=== PATIENT | female | born 1955 | race American Indian/Alaskan Native ===

== ENCOUNTER 2016-09-30 08:25 | Emergency (ER) | payer BC ==
[2016-09-30 08:25] VITALS: BMI 30.2
[2016-09-30 08:43] VITALS: TEMP 98.1; O2SAT 97
--- NOTE | 2016-09-30 09:00 | ED PDOC ---
Arrival/HPI - General Chief Complaint: Shortness Of Breath Time Seen by Provider: 09/30/16 08:36 Historian: Patient - History of Present Illness Narrative History of Present Illness (Text): 09/30/16 08:56 60 year old female who denies significant past medical history presents to the emergency department with productive cough associated with chest pain for the past week. She states she is bringing up white sputum. No other complaints at this time. PMD: Dr. Carrasco Time/Duration: 1 week Symptom Onset: Gradual Symptom Course: Unchanged Modifying Factors (Text): None Associated Symptoms (Text): None Past Medical History - Provider Review Nursing Documentation Reviewed: Yes - Infectious Disease Hx of Infectious Diseases: None - Tetanus Immunization Tetanus Immunization: Unknown - Reproductive Menopause: Yes - Past Medical History Past Medical History: No Previous - Cardiac Hx Hypertension: Yes (patient not sure) - Pulmonary Hx Pneumonia: Yes - Neurological Hx Neurological Disorder: No Hx Dizziness: Yes (chief complaint this admission) - HEENT Hx HEENT Disorder: No - Renal Hx Renal Disorder: No - Endocrine/Metabolic Hx Endocrine Disorders: No - Hematological/Oncological Hx Blood Disorders: No - Integumentary Hx Dermatological Disorder: No - Musculoskeletal/Rheumatological Hx Musculoskeletal Disorders: No - Gastrointestinal Hx Gastrointestinal Disorders: No - Genitourinary/Gynecological Hx Genitourinary Disorders: No - Psychiatric Hx Depression: No Hx Substance Use: No - Surgical History Hx Cholecystectomy: Yes Hx Tubal Ligation: Yes Other/Comment: left ovary removed - Anesthesia Hx Anesthesia: Yes Hx Anesthesia Reactions: No Hx Malignant Hyperthermia: No - Suicidal Assessment Feels Threatened In Home Enviroment: No Family/Social History - Physician Review Nursing Documentation Reviewed: Yes Family/Social History: Unknown Family HX Smoking Status: Never Smoked Hx Alcohol Use: No Hx Substance Use: No Allergies/Home Meds Allergies/Adverse Reactions: Allergies No Known Allergies Allergy (Verified 11/23/14 14:52) Home Medications: Home Meds Medication Instructions Recorded Confirmed Meclizine [Meclizine*] 1 tab PO DAILY PRN 09/30/16 09/30/16 Review of Systems - Physician Review All systems were reviewed & negative as marked: Yes - Review of Systems Eyes: absent: Vision Changes Respiratory: Cough, Sputum (white) Cardiovascular: Chest Pain (when coughing) Gastrointestinal: absent: Abdominal Pain Musculoskeletal: absent: Back Pain Skin: absent: Rash Neurological: absent: Dizziness Physical Exam Vital Signs Temp Pulse Resp BP Pulse Ox 09/30/16 09:56 78 17 149/89 97 09/30/16 08:51 17 09/30/16 08:43 98.1 F 80 20 139/83 97 09/30/16 08:31 98.5 F - Systems Exam Head: Present: Atraumatic, Normocephalic Pupils: Present: PERRL Extroacular Muscles: Present: EOMI Conjunctiva: Present: Normal Mouth: Present: Moist Mucous Membranes Neck: Present: Normal Range of Motion Respiratory/Chest: Present: Clear to Auscultation, Good Air Exchange. No: Respiratory Distress, Accessory Muscle Use Cardiovascular: Present: Regular Rate and Rhythm, Normal S1, S2. No: Murmurs Abdomen: Present: Normal Bowel Sounds. No: Tenderness, Distention, Peritoneal Signs Back: Present: Normal Inspection Upper Extremity: Present: Normal Inspection. No: Cyanosis, Edema Lower Extremity: Present: Normal Inspection. No: Edema Neurological: Present: GCS=15, CN II-XII Intact, Speech Normal Skin: Present: Warm, Dry, Normal Color. No: Rashes Psychiatric: Present: Alert, Oriented x 3, Normal Insight, Normal Concentration Medical Decision Making ED Course and Treatment: Impression: 60 year old female, denies PMHx presents to the emergency department with cough associated with chest pain for the past week. Differential Diagnosis include but are not limited to: Pneumonia vs bronchitis Plan: -- EKG, Chest X-ray -- Labs -- Reassess and disposition Prior Visits: Notes and results from previous visits were reviewed. Patient was last seen in the emergency department on 11/28/13 for dizziness and admitted to observation for dizziness. EKG: Ordered, reviewed, and independently interpreted the EKG. Rate : 84 BPM Rhythm : NSR Interpretation : No ST/T wave changes Comparison : No changes from previous EKG. Progress Notes 09/30/16 10:15 cxr no acute disease as read by me. labs unremarkable, atypical cp with cough, ekg no changes, trop neg x 1 with 1 week pain. pt comfortable, on phone in nad. 09/30/16 10:21 - Lab Interpretations Lab Results: 09/30/16 09:30 09/30/16 09:30 Lab Results 09/30/16 09:30: WBC 7.8, RBC 4.80, Hgb 13.3, Hct 40.7, MCV 84.8, MCH 27.7, MCHC 32.7, RDW 13.9, Plt Count 333, MPV 11.5 H, Gran % 61.9, Lymph % (Auto) 31.8, [place] % (Auto) 4.4, Eos % (Auto) 1.5, Baso % (Auto) 0.4, Gran # 4.83, Lymph # 2.5 , [place] # 0.3, Eos # 0.1, Baso # 0.03, PT 10.0, INR 0.93, APTT 27.1, Sodium 143, Potassium 4.2, Chloride 103, Carbon Dioxide 28, Anion Gap 16, BUN 19, Creatinine 1.0, Est GFR ( Amer) > 60, Est GFR (Non-Af Amer) 57, Random Glucose 89, Calcium 9.8, Magnesium 2.2, Total Bilirubin 0.3, AST 25, ALT 14, Alkaline Phosphatase 97, Lactate Dehydrogenase 447, Total Creatine Kinase 67, Troponin I < 0.01, NT-Pro-B Natriuret Pep 47.5, Total Protein 8.4 H, Albumin 4.2 , Globulin 4.2, Albumin/Globulin Ratio 1.0 L, Urine Color Yellow, Urine Appearance Clear, Urine pH 6.0, Ur Specific [place] 1.025, Urine Protein Trace H , Urine Glucose (UA) Negative, Urine Ketones Negative, Urine Blood Trace-intact H, Urine Nitrate Negative, Urine Bilirubin Negative, Urine Urobilinogen 0.2, Ur Leukocyte Esterase Trace H, Urine RBC 1 - 3, Urine WBC 5 - 10, Ur Epithelial Cells 6 - 8, Urine Bacteria Few - RAD Interpretation Radiology Orders: 09/30/16 08:56 CHEST PORTABLE [RAD] Stat - EKG Interpretation Interpreted by ED Physician: Yes Type: 12 lead EKG - Scribe Statement The provider has reviewed the documentation as recorded by the Milagro Delong Provider Scribe Attestation: All medical record entries made by the Maximibtali were at my direction and personally dictated by me. I have reviewed the chart and agree that the record accurately reflects my personal performance of the history, physical exam, medical decision making, and the department course for this patient. I have also personally directed, reviewed, and agree with the discharge instructions and disposition. Disposition/Present on Arrival - Present on Arrival Any Indicators Present on Arrival: No History of DVT/PE: No History of Uncontrolled Diabetes: No Urinary Catheter: No History of Decub. Ulcer: No History Surgical Site Infection Following: Orthopedic Procedures - Disposition Have Diagnosis and Disposition been Completed?: Yes Diagnosis: Bronchitis, Chest pain Disposition: HOME/ ROUTINE Disposition Time: 10:09 Patient Problems: Current Active Problems Problem Status Diagnosed Bronchitis Acute Chest pain Acute Condition: STABLE Discharge Instructions (ExitCare): Acute Bronchitis (ED), Chest Pain (ED) Additional Instructions: please follow up with your doctor. return to er with worsening symptoms or concerns Prescriptions: levoFLOXacin [Levaquin] 750 mg PO STAT #7 tab Referrals: Everett Carrasco MD [Primary Care Provider] - Follow up with primary Eric Santiago MD [Staff Provider] - Follow up with primary
[2016-09-30 09:36] LABS: ADD MANUAL DIFF? NO
[2016-09-30 09:50] LABS: URINE BILIRUBIN NEGATIVE (NEGATIVE); URINE BLOOD TRACE-INTACT (NEGATIVE); URINE GLUCOSE (UA) NEGATIVE (NEGATIVE); URINE KETONE NEGATIVE (NEGATIVE); URINE LEUKOCYTE ESTERASE TRACE Leu/uL (NEGATIVE); URINE PROTEIN TRACE mg/dL (<30 mg/dL); URINE UROBILINOGEN 0.2 E.U./dL (<1 E.U./dL)
[2016-09-30 09:53] LABS: BASO # 0.03 K/mm3 (0.0-2.0); BASO % 0.4 % (0.0-3.0); EOS # 0.1 (0.0-0.7); EOS % 1.5 % (1.5-5.0); GRAN # 4.83 (1.4-6.5); GRAN % 61.9 % (50.0-68.0); HEMATOCRIT 40.7 % (36.0-48.0); LYMPH # 2.5 (1.2-3.4); LYMPH % 31.8 % (22.0-35.0); MEAN CELL VOLUME 84.8 fL (80.0-105.0); MEAN CORPUSCULAR HEMOGLOBIN 27.7 pg (25.0-35.0); MEAN CORPUSCULAR HGB CONC 32.7 g/dl (31.0-37.0); MEAN PLATELET VOLUME 11.5 fl (7.0-11.0); MONO # 0.3 (0.1-0.6); MONO % 4.4 % (1.0-6.0); PLATELET COUNT 333 10^3/uL (120.0-450.0); RED CELL DISTRIBUTION WIDTH 13.9 % (11.5-14.5); WHITE BLOOD COUNT 7.8 10^3/ul (4.5-11.0)
[2016-09-30 09:55] LABS: ALKALINE PHOSPHATASE 97 U/L (38-133); ALT/SGPT 14 U/L (7-56); AST/SGOT 25 U/L (15-39); BILIRUBIN,TOTAL 0.3 mg/dL (0.2-1.3); BLOOD UREA NITROGEN 19 mg/dL (7-21); CALCIUM 9.8 mg/dL (8.4-10.5); CARBON DIOXIDE 28 mmol/L (21-33); CHLORIDE 103 mmol/L (98-107); GFR AFRICAN-AMERICAN > 60; GLUCOSE,RANDOM 89 mg/dL (70-110); MAGNESIUM 2.2 mg/dL (1.7-2.2); POTASSIUM 4.2 mmol/L (3.6-5.0); SODIUM 143 mmol/L (132-148); TOTAL PROTEIN 8.4 g/dL (5.8-8.3)
[2016-09-30 10:00] LABS: URINE APPEARANCE CLEAR (CLEAR); URINE COLOR YELLOW (YELLOW)
[2016-09-30 10:06] LABS: INR 0.93 (0.93-1.08); PARTIAL THROMBOPLASTIN TIME 27.1 Seconds (23.7-30.8)
[2016-09-30 10:07] LABS: TROPONIN I < 0.01 ng/mL
[2016-09-30 10:13] LABS: URINE BACTERIA FEW (NEG)
[2016-09-30 10:34] VITALS: BP 138/84; PULSE 76; RESP 18
--- NOTE | 2016-09-30 13:47 | RAD ---
HISTORY: cough COMPARISON: No prior. FINDINGS: LUNGS: No active pulmonary disease. PLEURA: No significant pleural effusion identified, no pneumothorax apparent. CARDIOVASCULAR: Normal. OSSEOUS STRUCTURES: No significant abnormalities. VISUALIZED UPPER ABDOMEN: Normal. OTHER FINDINGS: None. IMPRESSION: No active disease.
--- NOTE | 2016-09-30 18:41 | CARD ---
APPROVED REPORT EKG Measurement Heart [id number] <Conclusion> Normal sinus rhythm Normal ECG
== END 2016-09-30 10:34 | disposition home or self-care (01) ==
LOC: ED 08:25
DX: R07.9 Chest pain, unspecified (principal); J40 Bronchitis, not specified as acute or chronic; I10 Essential (primary) hypertension